=== PATIENT | male | born 1950 | race Caucasian/White ===

== ENCOUNTER → 2018-09-15 10:13 | Outpatient (CLI) | payer MEDICARE | END | disposition home or self-care (01) | LOC: D.MRI 10:13 | DX: M25.511 Pain in right shoulder (principal) ==

== ENCOUNTER 2018-10-08 05:00 | Day surgery (SDC) | payer MEDICARE, OTHER ==
[2018-10-06 11:47] LABS: BASOPHILS 0.3 % (0-2); EOSINOPHILS 1.3 % (0-7); HEMATOCRIT 47.5 % (42.0-54.0); HEMOGLOBIN 16.3 g/dL (13.5-17.5); IMMATURE GRANULOCYTES 0.1 % (0-5); LYMPHOCYTES 25.7 % (15-50); MCH 29.9 pg (26.0-34.0); MCHC 34.3 g/dL (31.0-37.0); MCV 87.2 fL (80.0-100.0); MEAN PLATELET VOLUME 10.6 fL (7.4-10.4); MONOCYTES 8.9 % (2-11); NEUTROPHILS 63.7 % (40-80); PLATELET COUNT 158 10x3/uL (130-400); RBC 5.45 10x6/uL (4.20-6.10); RDW 14.7 % (11.5-14.5); WBC 7.5 10x3/uL (4.8-10.8)
[2018-10-06 11:59] LABS: APTT 24.8 SECONDS (22.8-39.4); INR 1.02 (0.85-1.17); PROTIME 12.9 SECONDS (11.6-15.0)
[2018-10-06 12:05] LABS: ANION GAP 13.1 mmol/L (8-16); CALCIUM 9.6 mg/dL (8.5-10.1); CARBON DIOXIDE 25.8 mmol/L (21.0-32.0); CREATININE - SERUM 1.1 mg/dL (0.6-1.3); POTASSIUM - SERUM 3.9 mmol/L (3.5-5.1)
[~2018-10-08] VITALS: Ht 175.3 cm; Wt 77.6 kg
[~2018-10-08 05:00] MED LIST: ASPIRIN EC81 M1 PO; MULTI-DAY VITAM1 TAB PO; PLAVIX75 MG PO; PRAVACHOL80 MG PO; PROTONIX40 MG PO; RESTORIL15 MG PO; XALATAN 0.0052.5 ML RIGHT EYE
[2018-10-08 06:02] VITALS: BP 130/71; Ht 175.3 cm; Wt 77.6 kg
[2018-10-08] MEDS ORDERED: HYDROCODON-ACE1 EA10 PO (08:31)
--- NOTE | 2018-10-09 10:06 | OP ---
PATIENT NAME: ELIER COOPER MEDICAL RECORD: [id number] :48 [facility] ADMISS[facility] DATE: SURGEON: HECTOR BRYANT MD DATE OF OPERATION: 10/08/2018 PREOPERATIVE DIAGNOSES: 1. Rotator cuff tear of the right shoulder. 2. Impingement syndrome of the right shoulder. POSTOPERATIVE DIAGNOSES: 1. Rotator cuff tear of the right shoulder. 2. Impingement syndrome of the right shoulder. PROCEDURES: 1. Arthroscopic rotator cuff repair of the right shoulder. 2. Arthroscopic distal clavicle excision done through separate incision. 3. Arthroscopic subacromial decompression, acromioplasty, and bursectomy. SURGEON: Hector Bryant MD ANESTHESIA: General. INTRAOPERATIVE COMPLICATIONS: None. SUMMARY OF PATHOLOGIC FINDINGS: Consistent with the preoperative diagnosis. The patient had full thickness rotator cuff tear in the supraspinatus tendon and sharply downward sloping acromion and acromioclavicular arthritis. OPERATIVE SUMMARY IN DETAIL: After obtaining the appropriate preoperative orthopedic surgery consent as well as anesthetic consultation, evaluation and clearance, the patient was brought to the operating room and placed on the operating room table in supine position. After general laryngeal mask airway was administered, the patient was placed in left lateral decubitus position. All pressure points were well padded to include down leg peroneal pad as well as axillary roll. The patient was held firmly to operating table using the vacuum pack suction system. The patient's right upper extremity and shoulder were then prepped and draped in routine sterile fashion. The arm was held in the [employer] traction boom in 30 degrees of forward flexion, 30 degrees of abduction, 10 pounds of traction laterally. Arthroscopy was done in the glenohumeral joint from the posterior portal. Anterior portal was established in the anterior safe interval. Diagnostic arthroscopy revealed the patient had very minimal intraarticular inflammation. Attention was then turned to the subacromial space. While in the subacromial space, an accessory lateral portal was created through which [place] tissue ablation system was utilized to denude the undersurface of the acromion of all soft tissue elements and release the coracoacromial ligament. A 5-0 barrel bur was used to perform acromioplasty at the level of acromioclavicular joint. Through a separate anterior arthroscopic portal, distal clavicle was excised for 1 cm under direct arthroscopic visualization. Full thickness rotator cuff tearing was then noted mostly laminar in nature. This was then cleaned up. The supraspinatus tendon was decorticated for reapproximation. A single inverted #2 FiberTape was passed and anchored laterally with a 5.5 SwiveLock from [employer] resulting in excellent reapproximation of the small rotator cuff tear. Having completed this, arthroscopy portals were closed in routine interrupted fashion using 4-0 Prolene. Sterile dressings were applied. The patient was awakened and taken to OPERATIVE REPORT [id number] ELIER COOPER the recovery room in stable condition. All final needle and sponge counts were correct. TRANSINT:[id number] Voice Confirmation ID: [id number] DOCUMENT ID: [id number] ANNETTE MCGOWAN, HECTOR REYES at 1006 CC: [id number] DICTATION DATE: 10/08/18 0859 HEALTH TECHNICIAN HEARING: 10/08/18 1056 DEP SDC 10/08/18 [id number] [place] [address]
== END 2018-10-08 10:45 | disposition home or self-care (01) ==
LOC: D.OPS 05:00 → D.PAN 07:30 → D.OPS 10:45
PROVIDERS: Anesthesiology; ATTEND Orthopaedic Surgery
DX: M75.121 Complete rotator cuff tear or rupture of right shoulder, not specified as traumatic (principal); M75.41 Impingement syndrome of right shoulder; Z01.812 Encounter for preprocedural laboratory examination

== ENCOUNTER → 2020-04-24 09:18 | Outpatient (CLI) | payer MEDICARE, OTHER ==
[2018-10-08 06:02] VITALS: BMI 25.7
[~2020-04-24 09:18] MED LIST changes: +HYDROCODON-ACE1 EA10 PO
--- NOTE | 2020-04-26 16:55 | EC ---
PATIENT:ELIER COOPER DATE OF SERVICE: 04/24/20 SEX: M MEDICAL RECORD: [id number] DATE OF : 48 [facility] AGE OF PATIENT: 69 ADMISSION DATE: 04/24/20 REFERRING PHYSICIAN: INTERPRETING PHYSICIAN: JEFF MARCOS MD ECHOCARDIOGRAM REPORT ECHO CHARGES 4 ECHO COMPLETE Date: 04/24/20 CLINICAL DIAGNOSIS: CAD/ASSESS EF AND VALVES ECHOCARDIOGRAPHIC MEASUREMENTS (adult normal given) AC root (d.<3.7cm) 3.8 cm LV Septum d (<1.2 cm> 1.1 cm Valve Excursion 1.6 cm LV Septum (systole) 1.2 cm Left Atria (s.<4.0cm> 4.0 cm LVPW d(<1.2cm) 1.2 cm RV (d.<2.3cm) 3.9 cm LVPW (sytole) 1.6 cm LV diastole(<5.6CM) 5.4 cm MV E-F(>70mm/sec) cm LV systole 3.7 cm LVOT Diameter 2.1 cm MV exc.(>10mm) 1.8 cm Est.ejection fraction (50-75%) % DOPPLER: LVIT cm/sec A 57.0 cm/sec E 71.0 cm/sec LA cm/sec RVSP 32 mmHg LVOT 135 cm/sec AOP1/2T m/s Asc. Ao 132 cm/sec RVOT 64 cm/sec RA cm/sec PA 116 cm/sec AV Gradient Peak 6.95 mmHg AV Mean 3.31 mmHg AV Area 2.9 cm MV Gradient Peak 3.61 mmHg MV Mean 1.19 mmHg MV Area cm COMMENTS: Paragliding Instructor: 2 PATY MANNING Surveyor Oil Well Directional: 3 Dr. Hernandez TAPE# PACS Pericardial Effusion N DATE OF SERVICE: Adequate 2D echo, color flow imaging, spectral Doppler, and M-Mode No LVH. LV internal dimensions are normal. Wall motion is normal. EF is greater than or equal to 55%. Aortic valve sclerosis without stenosis by Doppler interrogation. Left atrium is normal at 4.0 cm. Mitral valve shows no prolapse. Trace MR. Right side is grossly normal. Mild TR. TRANSINT:[id number] Voice Confirmation ID: [id number] DOCUMENT ID: [id number] ECHOCARDIOGRAM REPORT [id number] ELIER COOPER JEFF MARCOS MD at 1655 CC: [id number] DICTATION DATE: 04/25/20 0847 RELIGIOUS EDUCATION TEACHER: 04/25/20 1217 DEP CLI 04/24/20 [id number] [place] [address]
== END | disposition home or self-care (01) ==
LOC: D.HCCECHO 09:18
PROVIDERS: ATTEND Internal Medicine Interventional Cardiology
DX: I25.10 Atherosclerotic heart disease of native coronary artery without angina pectoris (principal)

== ENCOUNTER 2020-12-25 08:21 | Emergency (ER) | payer MEDICARE, OTHER ==
[~2020-12-25] VITALS: Ht 175.3 cm; Wt 80.0 kg
[2020-12-25 08:24] VITALS: Ht 175.3 cm; Wt 80.0 kg
[2020-12-25 10:11] VITALS: BP 170/62
== END 2020-12-25 10:03 | disposition home or self-care (01) ==
LOC: D.ER 08:21
DX: S43.401A Unspecified sprain of right shoulder joint, initial encounter (principal); S50.812A Abrasion of left forearm, initial encounter; S60.811A Abrasion of right wrist, initial encounter; S09.90XA Unspecified injury of head, initial encounter; I25.2 Old myocardial infarction; K21.9 Gastro-esophageal reflux disease without esophagitis; W01.0XXA Fall on same level from slipping, tripping and stumbling without subsequent striking against object, initial encounter; Y93.9 Activity, unspecified; Y92.9 Unspecified place or not applicable